=== PATIENT | female | born 1960 | race Hispanic/Latino ===

== ENCOUNTER 2017-01-17 08:11 | Emergency (ER) | payer OTHER ==
[2017-01-17] MEDS ORDERED: TYLENOL ONE (09:02)
--- NOTE | 2017-01-17 09:04 | XRay Report ---
CHEST 2 VIEWS INDICATION: Dizziness. COMPARISON: None similar. FINDINGS: PA and lateral chest radiographs demonstrate normal cardiomediastinal silhouette. Mild aortic knob calcifications. Clear lungs. Intact bones. EKG leads. CONCLUSION: No acute disease in the chest. Thank you for the opportunity to participate in this patient's care.
[2017-01-17 09:17] LABS: Basophils % (Auto) 1.4 % (0.0-1.8); Eosinophils % (Auto) 3.5 % (0.0-4.3); Hematocrit 37.2 % (30.3-42.9); Hemoglobin 11.9 gm/dl (10.1-14.3); Mean Corpuscular HGB Conc 32 % (30-34); Mean Corpuscular Volume 81 fl (79-97); Platelet Count 218 K/mm3 (140-440); Red Blood Count 4.61 M/mm3 (3.65-5.03); Red Cell Distribution Width 15.9 % (13.2-15.2); White Blood Count 5.3 K/mm3 (4.5-11.0)
[2017-01-17 09:18] LABS: Mean Corpuscular Hemoglobin 26 pg (28-32)
[2017-01-17] MEDS ORDERED: TYLENOL PO ONE (09:28)
[2017-01-17 09:36] LABS: Blood Urea Nitrogen 12 mg/dL (7-17); Calcium 9.3 mg/dL (8.4-10.2); Carbon Dioxide 27 mmol/L (22-30); Glucose 101 mg/dL (65-100)
[2017-01-17 09:37] LABS: Anion Gap 16 mmol/L; Chloride 104.6 mmol/L (98-107); Potassium 5.1 mmol/L (3.6-5.0); Sodium 142 mmol/L (137-145)
[2017-01-17] MEDS ORDERED: REGLAN IV ONE (10:20)
[2017-01-17] MEDS ORDERED: NACL 0.9% 1000 ML 1,000 ML IV ONE (10:20)
[2017-01-17] MEDS ORDERED: TORADOL IV ONE (10:20)
--- NOTE | 2017-01-17 10:23 | Emergency Department Report ---
ED Headache HPI - General Chief Complaint: Headache Stated Complaint: BACK PAIN Time Seen by Provider: 01/17/17 09:47 Source: patient - History of Present Illness Timing/Duration: 1-3 hours Quality: moderate Head Injury Location: frontal, temporal, parietal Recent Head Trauma: occasional headaches Associated Symptoms: denies: confusion, fatigue, facial pain, fever/chills, flushing, loss of consciousness, nausea/vomiting, nasal congestion, nasal drainage, numbness in legs/feet, rash, seizures, sinus infection, stiff neck, vision changes, weakness Allergies/Adverse Reactions: Allergies No Known Allergies Allergy (Unverified 01/17/17 08:36) Home Medications: Ambulatory Orders Diclofenac Sodium 75 mg PO BID #14 tablet. 01/17/17 ED Review of Systems ROS: Stated complaint: BACK PAIN Other details as noted in HPI Comment: All other systems reviewed and negative ED Past Medical Hx - Past Medical History Previous Medical History?: No Additional medical history: Uterine fibroids, vaginal delivery x 3 - Surgical History Past Surgical History?: Yes Hx Appendectomy: Yes Additional Surgical History: Partial hysterectomy - Social History Smoking Status: Never Smoker Substance Use Type: None - Medications Home Medications: Home Medications Medication Instructions Recorded Confirmed Last Taken Type Diclofenac Sodium 75 mg PO BID #14 tablet. 01/17/17 Unknown Rx ED Physical Exam - General Limitations: No Limitations General appearance: alert, in no apparent distress - Head Head exam: Present: atraumatic, normocephalic - Eye Eye exam: Present: normal appearance, PERRL, EOMI. Absent: nystagmus - ENT ENT exam: Present: normal exam, normal orophraynx, mucous membranes moist - Neck Neck exam: Present: normal inspection - Respiratory Respiratory exam: Present: normal lung sounds bilaterally. Absent: respiratory distress - Cardiovascular Cardiovascular Exam: Present: regular rate, normal rhythm. Absent: systolic murmur, diastolic murmur, rubs, gallop - GI/Abdominal GI/Abdominal exam: Present: soft, normal bowel sounds - Extremities Exam Extremities exam: Present: normal inspection - Back Exam Back exam: Present: normal inspection - Neurological Exam Neurological exam: Present: alert, oriented X3, CN II-XII intact, normal gait, reflexes normal - Psychiatric Psychiatric exam: Present: normal affect, normal mood - Skin Skin exam: Present: warm, dry, intact, normal color. Absent: rash ED Course Vital Signs 01/17/17 01/17/17 01/17/17 08:16 08:28 08:30 Temperature 98.6 F Pulse Rate 55 L 60 Respiratory 16 14 Rate Blood Pressure 182/74 145/71 O2 Sat by Pulse 100 98 Oximetry 01/17/17 01/17/17 01/17/17 09:00 09:10 09:29 Temperature Pulse Rate 63 Respiratory 11 L 16 16 Rate Blood Pressure 160/76 O2 Sat by Pulse 98 Oximetry ED Medical Decision Making - Lab Data Result diagrams: 01/17/17 09:01 01/17/17 09:01 - Radiology Data Radiology results: report reviewed, image reviewed - Medical Decision Making patient doing well, symptoms free at this time , labs neg and head ct negative, wishes to go home and eat , offered further testing like LP but refused at this time. Critical care attestation.: If time is entered above; I have spent that time in minutes in the direct care of this critically ill patient, excluding procedure time. ED Disposition Clinical Impression: Headache Disposition: DISCHARGED TO HOME OR SELFCARE Is pt being admited?: No Does the pt Need Aspirin: No Condition: Good Instructions: Tension Headache (ED), Acute Headache (ED) Prescriptions: Diclofenac Sodium 75 mg PO BID #14 tablet. Referrals: PRIMARY CARE, [Primary Care Provider] - 3-5 Days Forms: Work/School Release Form(ED) Time of Disposition: 11:36
--- NOTE | 2017-01-17 10:53 | Cat Scan Report ---
CT HEAD WITHOUT CONTRAST INDICATION: Headache. COMPARISON: None similar. FINDINGS: Noncontrast head CT demonstrates normal ventricles and sulci without acute or recent infarct, hemorrhage, mass effect or midline shift. Entire interventricular septum though not well visible. No abnormal extra-axial fluid collections. Posterior fossa structures and basilar cisterns appear within normal limits. Symmetric eye globes. Leftward nasal septal deviation. Clear paranasal sinuses and mastoid air cells. Intact calvarium. Normal overlying scalp soft tissues. Few radiopaque dental material incidentally noted. CONCLUSION: No acute intracranial CT abnormality, as described. Thank you for the opportunity to participate in this patient's care.
[2017-01-17 12:25] VITALS: BP 145/66
== END 2017-01-17 12:40 | disposition home or self-care (01) ==
LOC: ED 08:11
DX: R51 Headache (principal); M54.9 Dorsalgia, unspecified
CPT/HCPCS: 36415; 70450; 71020; 80048; 82375; 84484; 85025; 85652; 96361; 96374; 96375; 99285; J1885; J2765; J7030